=== PATIENT | female | born 1940 | race Asian ===

== ENCOUNTER 2018-04-29 13:00 | Outpatient (CLI) | payer OTHER | END 2018-04-29 20:37 | disposition home or self-care (01) | LOC: SMA 13:00 | PROVIDERS: ATTEND Internal Medicine | DX: Z12.31 Encounter for screening mammogram for malignant neoplasm of breast (principal) | CPT/HCPCS: 77067 ==

== ENCOUNTER 2022-02-06 09:59 | Outpatient (CLI) | payer OTHER | END 2022-02-06 21:15 | disposition home or self-care (01) | LOC: SMA 09:59 | PROVIDERS: ATTEND Internal Medicine | DX: Z12.31 Encounter for screening mammogram for malignant neoplasm of breast (principal) | CPT/HCPCS: 77067 ==